=== PATIENT | female | born 1960 ===

== ENCOUNTER → 2018-07-23 | Outpatient (CLI) | payer OTHER ==
[~2018-07-23] MED LIST: ALBIPROI; HYDACE5 PO; MULVITMINF; NAPR500 PO
== END | disposition home or self-care (01) ==
LOC: LAB SHORT 16:15 → LAB 16:15
DX: J06.9 Acute upper respiratory infection, unspecified (principal)
CPT/HCPCS: 87070; 87205

== ENCOUNTER → 2021-02-11 | Outpatient (CLI) | payer OTHER ==
[2021-02-11 20:34] LABS: Protein, Urine Quantitative 10.1 mg/dL (0.0-11.9)
== END | disposition home or self-care (01) ==
LOC: LAB SHORT 16:22 → LAB 16:22
PROVIDERS: Family Medicine
DX: E11.649 Type 2 diabetes mellitus with hypoglycemia without coma (principal)
CPT/HCPCS: 84156

== ENCOUNTER → 2021-06-29 | Outpatient (CLI) | payer OTHER ==
[2021-06-30 09:10] LABS: Stool Occult Bld Immuno 1 Negative (NEGATIVE)
== END | disposition home or self-care (01) ==
LOC: LAB SHORT 15:20
PROVIDERS: Family Medicine
DX: Z12.11 Encounter for screening for malignant neoplasm of colon (principal)
CPT/HCPCS: G0328

== ENCOUNTER 2024-05-01 00:16 | Inpatient (IN) | payer MEDICARE, OTHER ==
[~2024-05-01] VITALS: Ht 167.6 cm; Wt 150.1 kg
[2024-05-01 01:02] LABS: BASOPHILS ABSOLUTE AUTO 0.03 K/mm3 (0.00-0.23); BASOPHILS PERCENT AUTO 0 % (0-2); EOSINOPHILS ABSOLUTE AUTO 0.03 K/mm3 (0.00-0.68); EOSINOPHILS PERCENT AUTO 0 % (0-6); Hematocrit 42.6 % (33.0-51.0); Hemoglobin 14.5 g/dL (11.5-16.0); IMMATURE GRAN ABSOLUTE AUTO 0.04 K/mm3 (0.00-0.10); IMMATURE GRAN PERCENT AUTO 0 % (0-1); LYMPHOCYTES ABSOLUTE AUTO 1.96 K/mm3 (0.84-5.20); LYMPHOCYTES PERCENT AUTO 21 % (21-46); MONOCYTES ABSOLUTE AUTO 1.22 K/mm3 (0.16-1.47); MONOCYTES PERCENT AUTO 13 % (4-13); Mean Corpuscular Volume 82 fL (80-100); Mean Platelet Volume 11.2 fL (9.1-12.4); NEUTROPHILS PERCENT AUTO 65 % (41-73); Platelet Count 246 K/mm3 (150-400); RDW Coefficient Variation 15.3 % (11.7-14.2); RDW Standard Deviation 45.8 fL (35.1-46.3); Red Blood Cell Count 5.18 M/mm3 (3.80-5.20); White Blood Cell Count 9.28 K/mm3 (4.00-11.30)
[2024-05-01 01:16] LABS: Base Excess Venous -1.2 mmol/L; Bicarbonate Venous 22.4 mmol/L (24.0-30.0); PCO2 Venous 47.5 mmHg (38-42); pH Blood Venous 7.33 (7.34-7.37)
[2024-05-01 01:33] LABS: Magnesium, Blood 2.1 mg/dL (1.6-2.4)
[2024-05-01 01:33] LABS: International Normalized Ratio 0.96; Prothrombin Time Results 10.3 Sec (9.7-11.5)
[2024-05-01 01:41] LABS: Albumin, Blood 3.1 g/dL (3.4-5.0); Albumin/Globulin Ratio 0.7 (0.8-1.8); Bilirubin, Total 0.7 mg/dL (0.1-1.0); Bun/Creatinine Ratio 23.6 (12.0-20.0); Calcium, Blood 9.7 mg/dL (8.5-10.1); Creatinine, Blood 1.27 mg/dL (0.40-1.00); Globulin, Blood 4.2 g/dL (2.2-4.0); Phosphorus, Blood 3.1 mg/dL (2.5-4.9); Potassium, Blood 3.5 mmol/L (3.5-5.5); Total Protein, Blood 7.3 g/dL (6.4-8.2)
[2024-05-01 02:22] LABS: CORONAVIRUS COVID-19 AG Negative (NEGATIVE); INFLUENZA A AG Negative (NEGATIVE); INFLUENZA B AG Negative (NEGATIVE)
[2024-05-01] MEDS ORDERED: Acetaminophen 325 MG TABLET PO PRN (02:35)
[2024-05-01] MEDS ORDERED: Ipratropium/Albuterol SulF 2.5-0.5MG/3 ML Amp INH SCH (02:35)
[2024-05-01] MEDS ORDERED: FLU VACC TS2024-25(6MOS UP)/PF 45 MCG/0.5 ML SYRINGE IM ONE (02:35)
[2024-05-01] MEDS ORDERED: Lactated Ringer's 1,000 ML IV SCH ×2 (03:00→06:40)
[2024-05-01] MEDS ORDERED: Insulin Glargine-Yfgn 100 Unit/mL 3 ML SYR SC SCH ×2 (03:00→21:00)
[2024-05-01] MEDS ORDERED: Azithromycin 500 MG in NS 250 ML IV SCH (03:05)
[2024-05-01] MEDS ORDERED: LevoFLOXacin 750 MG/D5W 150ML 150 ML IV ONE (03:40)
[2024-05-01] MEDS ORDERED: TRAM50 PO (03:48)
[2024-05-01 04:26] VITALS: BP 105/62
[2024-05-01 05:22] LABS: Base Excess Venous -3.7 mmol/L; Bicarbonate Venous 20.8 mmol/L (24.0-30.0); PCO2 Venous 44.9 mmHg (38-42); pH Blood Venous 7.31 (7.34-7.37)
[2024-05-01 05:24] LABS: BASOPHILS ABSOLUTE AUTO 0.04 K/mm3 (0.00-0.23); BASOPHILS PERCENT AUTO 1 % (0-2); EOSINOPHILS ABSOLUTE AUTO 0.01 K/mm3 (0.00-0.68); EOSINOPHILS PERCENT AUTO 0 % (0-6); Hematocrit 48.5 % (33.0-51.0); Hemoglobin 16.1 g/dL (11.5-16.0); IMMATURE GRAN ABSOLUTE AUTO 0.03 K/mm3 (0.00-0.10); IMMATURE GRAN PERCENT AUTO 0 % (0-1); LYMPHOCYTES ABSOLUTE AUTO 1.54 K/mm3 (0.84-5.20); LYMPHOCYTES PERCENT AUTO 19 % (21-46); MONOCYTES ABSOLUTE AUTO 0.88 K/mm3 (0.16-1.47); MONOCYTES PERCENT AUTO 11 % (4-13); Mean Corpuscular HGB 27.6 pg (26.0-34.0); Mean Corpuscular HGB Conc 33.2 g/dL (31.5-36.5); Mean Corpuscular Volume 83 fL (80-100); Mean Platelet Volume 11.1 fL (9.1-12.4); NEUTROPHILS ABSOLUTE AUTO 5.68 K/mm3 (1.96-9.15); NEUTROPHILS PERCENT AUTO 69 % (41-73); Platelet Count 229 K/mm3 (150-400); RDW Coefficient Variation 15.2 % (11.7-14.2); RDW Standard Deviation 45.7 fL (35.1-46.3); Red Blood Cell Count 5.83 M/mm3 (3.80-5.20); White Blood Cell Count 8.18 K/mm3 (4.00-11.30)
--- NOTE | 2024-05-01 05:31 | NUR ---
SHIFT SUMMARY PT ADMITTED FROM THE ED AT 0405. PT STATES SOME NAUSEA, BUT SHE FEELS HUNGRY. DENIES CURRENT SOB OR RESPIRATORY DISTRESS- ON 3L NC. PT HAS NOT VOIDED, URINE FOR LAB IS PENDING. CONTINUOUS IVF INFUSING WELL ORDERED ANTIBIOTICS. PT LAYING IN BED WITH CALL LIGHT IN REACH. BED IN LOWEST POSITION, SIDERAILS U X2.
[2024-05-01 05:56] LABS: Albumin, Blood 3.8 g/dL (3.4-5.0); Albumin/Globulin Ratio 0.8 (0.8-1.8); Bilirubin, Total 0.7 mg/dL (0.1-1.0); Bun/Creatinine Ratio 24.4 (12.0-20.0); Calcium, Blood 10.7 mg/dL (8.5-10.1); Creatinine, Blood 1.31 mg/dL (0.40-1.00); Globulin, Blood 4.9 g/dL (2.2-4.0); Potassium, Blood 3.4 mmol/L (3.5-5.5); Total Protein, Blood 8.7 g/dL (6.4-8.2)
[2024-05-01] MEDS ORDERED: NS 1,000 ML IV SCH (07:00)
[2024-05-01] MEDS ORDERED: Insulin Human Lispro 100 Units/ML 3ML Syringe SC SCH ×3 (07:30→21:00)
[2024-05-01] MEDS ORDERED: Potassium Chloride 20 MEQ TabCR PO ONE (08:00)
[2024-05-01 08:20] VITALS: BP 115/61
[2024-05-01] MEDS ORDERED: Lactobacil 2-S.Thermo-Bifido 1 1 Cap PO SCH (09:00)
[2024-05-01] MEDS ORDERED: GuaiFENesin 600 MG TabCR PO SCH (09:00)
[2024-05-01] MEDS ORDERED: PredniSONE 20 MG Tab PO SCH (09:00)
[2024-05-01] MEDS ORDERED: Enoxaparin 40 MG/0.4 ML SYR SC SCH (09:00)
[2024-05-01] MEDS ORDERED: LevoFLOXacin 750 MG Tab PO SCH (10:00)
[2024-05-01 10:04] LABS: Source, Urine Clean Catch
[2024-05-01 10:12] LABS: Appearance, Urine Hazy (Clear); Bilirubin, Urine Neg (Neg); Blood, Urine 1+ (Neg); Color, Urine Yellow (P-Yellow); Glucose Qualitative, Urine Neg (Neg); Ketones, Urine Neg (Neg); Leukocyte Esterase, Urine 3+ (Neg); Nitrite, Urine Neg (Neg); Protein, Urine 2+ (Neg); Specific Gravity, Urine 1.025 (1.003-1.022); Urobilinogen, Urine NORM (Normal)
[2024-05-01 10:18] LABS: Amorphous Light (0-Heavy); Squamous Epithelial Cells Many /hpf (Few)
[2024-05-01 10:19] LABS: Bacteria Many /hpf
[2024-05-01 11:25] LABS: Albumin, Blood 3.1 g/dL (3.4-5.0); Albumin/Globulin Ratio 0.7 (0.8-1.8); Bilirubin, Total 0.6 mg/dL (0.1-1.0); Bun/Creatinine Ratio 29.6 (12.0-20.0); Calcium, Blood 9.8 mg/dL (8.5-10.1); Creatinine, Blood 1.15 mg/dL (0.40-1.00); Globulin, Blood 4.3 g/dL (2.2-4.0); Potassium, Blood 3.5 mmol/L (3.5-5.5); Total Protein, Blood 7.4 g/dL (6.4-8.2)
--- NOTE | 2024-05-01 12:13 | NUR ---
MD CALL DR HELTON NOTIFIED OF BLOOD GLUCOSE OF 352. PT HAS EATEN SOME FOOD BROUGHT IN BY FAMILY. TELEPHONE ORDER TO GIVE 7 UNITS INSULIN INSTEAD OF THE 5 UNITS ON THE SLIDING SCALE NOW. READ BACK DONE.
[2024-05-01] MEDS ORDERED: BASAGLAR K100 UNIT/1 SC (14:39)
[2024-05-01] MEDS ORDERED: PRAV20 PO (14:40)
[2024-05-01] MEDS ORDERED: SYMBICORT 160-4.6 GM INH (14:41)
[2024-05-01] MEDS ORDERED: LOSA50 PO (14:42)
[2024-05-01] MEDS ORDERED: CYCL10 PO (14:42)
[2024-05-01] MEDS ORDERED: GABA600 PO (14:43)
[2024-05-01] MEDS ORDERED: METF500C PO (14:43)
[2024-05-01] MEDS ORDERED: ASCO500 PO (14:44)
[2024-05-01] MEDS ORDERED: ALBU90OI INH (14:45)
[2024-05-01] MEDS ORDERED: Adipex-P37.5 M1 PO (15:07)
--- NOTE | 2024-05-01 15:11 | NUR ---
SHIFT SUMMARY MS FUCHS IS OX4. DENIES HAVING PAIN. TALKING IN FULL SENTENCES WITHOUT SOB ON 3L OXYGEN NASAL CANULA. UP TO CHAIR WITH 1 PERSON ASSISTANCE, STEADY TRANSFER. BLOOD GLUCOSE ELEVATED. [facility] CALLED AND MEDICATION LIST VERIFIED INCLUDING 150UNITS GLARGINE SC DAILY. BACK IN BED THIS AFTERNOON SLEEPING. BED LOW, CALL LIGHT IN REACH.
[2024-05-01 15:26] VITALS: BP 143/63
--- NOTE | 2024-05-01 17:06 | NUR ---
NOTIFY BLOOD GLUCOSE 445. DR HELTON NOTIFIED. AWAITING ORDERS.
[2024-05-01] MEDS ORDERED: TraMADol HCl 50 MG Tab PO PRN (17:10)
[2024-05-01] MEDS ORDERED: Cyclobenzaprine HCl 10 MG Tab PO PRN (17:15)
[2024-05-01] MEDS ORDERED: Mometasone/Formoterol MDI 200/5 mcg 13 GM INH SCH (17:30)
[2024-05-01] MEDS ORDERED: Albuterol HFA200 ACT/6.7 GM INH INH PRN (17:30)
[2024-05-01 19:23] VITALS: BP 142/62
[2024-05-01] MEDS ORDERED: Gabapentin 300 MG Cap PO SCH (21:00)
[2024-05-01] MEDS ORDERED: Pravastatin Sodium 20 MG Tab PO SCH (21:00)
[2024-05-02 04:41] VITALS: BP 140/92
--- NOTE | 2024-05-02 06:33 | NUR ---
SHIFT SUMMARY PT STATES SHE FELT BETTER LAST EVENING, STRONGER AND STEADIER ON HER FEET. PT AMBULATING TO THE BATHROOM WITH WALKER AND SBA. PT STATES SHE FEELS MORE CONGESTED THIS AM. NEBULIZER TREATMENT DUE SOON. O2- 3L NC IN PLACE THROUGH THE NIGHT. PT SLEPT INTERMITTENTLY DURING THE NIGHT. CALL LIGHT WITHIN REACH, SIDERAILS UP X2.
[2024-05-02 07:23] VITALS: BP 143/57
[2024-05-02] MEDS ORDERED: Ascorbic Acid 500 MG Tab PO SCH (09:00)
[2024-05-02] MEDS ORDERED: PHENTERMINE 37.5 MG PO SCH (09:00)
[2024-05-02] MEDS ORDERED: LevoFLOXacin 750 MG Tab PO SCH (09:00)
[2024-05-02] MEDS ORDERED: Losartan Potassium 50 MG Tab PO SCH (09:00)
[2024-05-02] MEDS ORDERED: Insulin Glargine-Yfgn 100 Unit/mL 3 ML SYR SC SCH (10:00)
[2024-05-02 10:52] LABS: Hematocrit 39.1 % (33.0-51.0); Mean Corpuscular HGB 27.9 pg (26.0-34.0); Mean Corpuscular HGB Conc 33.2 g/dL (31.5-36.5); Mean Corpuscular Volume 84 fL (80-100); Mean Platelet Volume 11.4 fL (9.1-12.4); Platelet Count 225 K/mm3 (150-400); RDW Coefficient Variation 15.2 % (11.7-14.2); RDW Standard Deviation 46.5 fL (35.1-46.3); Red Blood Cell Count 4.66 M/mm3 (3.80-5.20); White Blood Cell Count 6.92 K/mm3 (4.00-11.30)
[2024-05-02 11:25] LABS: Albumin, Blood 3.1 g/dL (3.4-5.0); Anion Gap 11 mmol/L (3-11); Blood Urea Nitrogen 26 mg/dL (8-24); Bun/Creatinine Ratio 45.3 (12.0-20.0); CO2, Blood 26 mmol/L (21-32); Chloride, Blood 105 mmol/L (98-108); Creatinine, Blood 0.57 mg/dL (0.40-1.00); Glomerular Filtration Rate 100 (60-); Glucose, Blood 272 mg/dL (70-99); Phosphorus, Blood 2.1 mg/dL (2.5-4.9); Potassium, Blood 3.6 mmol/L (3.5-5.5); Sodium, Blood 138 mmol/L (136-145)
[2024-05-02 15:29] VITALS: BP 119/58
[2024-05-02] MEDS ORDERED: Potassium Phosphate Dibasic 30 MM in Dextrose 5% 500 ML IV STA (17:33)
[2024-05-02] MEDS ORDERED: NS 1,000 ML IV SCH (17:35)
--- NOTE | 2024-05-02 18:07 | NUR ---
NO ACUTE CHANGES, LONG ACTING INSULIN INCREASED, PATIENT SHOWERED TODAY, LS CONGESTED, ONE BAG IVF INFUSING, TO GET POTASSIUM IV, NEW IV TO RIGHT FOREARM, CALL LIGHT WITH IN REACH, WILL RELAY TO PM RN
[2024-05-02 19:47] VITALS: BP 141/59
--- NOTE | 2024-05-02 21:29 | NUR ---
Pt alert/ oriented. pt coughing and taking deep breathes, on nasal cannula. SBA to restroom and back to bed. Vital signs completed
--- NOTE | 2024-05-02 21:36 | NUR ---
CBG 395 AND GAVE NIGHT SLIDING SCALE HUMALOG 6 UNITS AND SCHEDULE GLARGINE [address] VALENCIA NOTIFED AND REPORTED TO CHECK NEXT SET OF LABS. ALERT ORIENTED WATCHING TV. WCTM.
[2024-05-03 03:20] VITALS: BP 149/64
--- NOTE | 2024-05-03 04:10 | NUR ---
SHIFT SUMMARY PATIENT CBG 395 AND HOSPITALIST NOTIFIED AFTER GIVING NIGHT SLIDING SCALE HUMALOG AND GLARGINE 30 UNITS. HE REPORTED TO CHECK MORNING LABS. ON 3L O2 NC. DENIES CHEST PAIN, SOB, AND N/V. VSS/AFEBRILE. PIV INTACT. IV K+ INFUSING. RT IN FOR BREATHNG TX. CALL LIGHT IN REACH. BED IN LOWEST POSITION. WILL CONTINUE TO MONITOR UNTIL DAY SHIFT NURSE ASSUMES CARE.
[2024-05-03 06:54] LABS: Anion Gap 11 mmol/L (3-11); Blood Urea Nitrogen 20 mg/dL (8-24); Bun/Creatinine Ratio 38.5 (12.0-20.0); CO2, Blood 28 mmol/L (21-32); Calcium, Blood 10.6 mg/dL (8.5-10.1); Chloride, Blood 105 mmol/L (98-108); Creatinine, Blood 0.52 mg/dL (0.40-1.00); Glomerular Filtration Rate 102 (60-); Glucose, Blood 279 mg/dL (70-99); Sodium, Blood 140 mmol/L (136-145)
[2024-05-03 07:32] VITALS: BP 192/69
[2024-05-03 15:09] VITALS: BP 153/66
--- NOTE | 2024-05-03 18:03 | NUR ---
CLEARLY MAKES NEEDS KNOWN, NO ACUTE CHANGES, DIETARY CONSULT FOR TOMORROW, MEDICATED WITH TYLENOL, ANDREA REFUSED THE NEED FOR TRAMADOL. CALL LIGHT WITH IN REACH WILL RELAY TO PM ALONZO
[2024-05-03 19:17] VITALS: BP 143/76
[2024-05-03 19:18] VITALS: BP 143/76
[2024-05-03] MEDS ORDERED: Insulin Glargine-Yfgn 100 Unit/mL 3 ML SYR SC SCH (21:00)
[2024-05-04 02:49] VITALS: BP 146/56
--- NOTE | 2024-05-04 04:45 | NUR ---
SHIFT SUMMARY PT ALERT ORIENTED X 4 ABLE TO VERBALIZE NEEDS REQUIRES 1 PERSON SBA WITH WALKER FOR TRANSFERS. NO C/O PAIN THIS SHIFT. REMAINS ON O2 AT 3L VIA NC. NO C/O SOB THIS SHIFT. VSS ON 3L SATTING AT 95%. REMAINS ON LEVAQUIN QDAY. FS DONE AC AND HS WAS 325. SHES RESTING IN BED AT THIS TIME WITH CALL LIGHT IN REACH
[2024-05-04 07:26] VITALS: BP 164/72
[2024-05-04 15:05] VITALS: BP 155/63
--- NOTE | 2024-05-04 18:41 | NUR ---
NO ACUTE CHANGES, CLEARLY MAKES NEEDS KNOWN, GRADES 1 6 TUTOR TO ROUND TOMORROW, PATIENT NEEDS DIABETIC FOOD EDUCATION, FRIENDS VISITING NOW, SHOWERED TODAY, ENCOURAGED FLUIDS, USES CALL LIGHT APPROPRIATELY, INDEPEDANT IN ROOM WITH O2 TUBING, WILL RELAY TO PM RN
[2024-05-04 19:32] VITALS: BP 142/61
[2024-05-05 04:10] VITALS: BP 112/52
--- NOTE | 2024-05-05 04:29 | NUR ---
SHIFT SUMMARY PT ALERT ORIENTED X 4 ABLE TO VERBALIZE NEEDS CALLS APPROPRIATELY AMBULATES AD VICTOR MANUEL IN HER ROOM WITH WALKER. REMAINS ON O2 AT 3L VIA NC NO C/O SOB THIS SHIFT REMAINS ON LEVAQUIN ORDERED NO C/O PAIN VSS ON 3 L SATTING AT 93%. FS DONE AC AND HS WAS 371. SHE RECEIVED HER HUMALOG AND GLARGINE COVERAGE. RESTING IN BED AT THIS TIME WITH CALL LIGHT IN REACH
[2024-05-05 05:51] LABS: Hematocrit 38.3 % (33.0-51.0); Hemoglobin 12.4 g/dL (11.5-16.0); Mean Corpuscular HGB 27.7 pg (26.0-34.0); Mean Corpuscular HGB Conc 32.4 g/dL (31.5-36.5); Mean Corpuscular Volume 86 fL (80-100); Mean Platelet Volume 11.5 fL (9.1-12.4); Platelet Count 212 K/mm3 (150-400); RDW Standard Deviation 46.4 fL (35.1-46.3); Red Blood Cell Count 4.48 M/mm3 (3.80-5.20); White Blood Cell Count 9.26 K/mm3 (4.00-11.30)
[2024-05-05 06:21] LABS: Bun/Creatinine Ratio 35.2 (12.0-20.0); Calcium, Blood 10.4 mg/dL (8.5-10.1); Creatinine, Blood 0.45 mg/dL (0.40-1.00); Potassium, Blood 3.8 mmol/L (3.5-5.5)
[2024-05-05 07:28] VITALS: BP 188/85
[2024-05-05] MEDS ORDERED: Fluconazole 100 MG Tab PO ONE (14:10)
[2024-05-05 15:11] VITALS: BP 179/83
--- NOTE | 2024-05-05 18:52 | NUR ---
PATIENT A/OX4, UP INDEPENDENTLY WITH FWW IN ROOM. VSS, ON 2LO2 VIA NC. ACHS BLOOD SUGARS, COVERAGE PER SS. TYLENOL GIVEN X1 FOR HEADACHE WITH STATED RELIEF. PATIENT REPORTS BURNING WITH URINATION, DR HELTON NOTIFIED AND AYO ORDERED TO TREAT. PATIENT PLEASANT AND COOPERATIVE, ABLE TO MAKE NEEDS KNOWN.
[2024-05-05 19:30] VITALS: BP 168/69
[2024-05-06 03:22] VITALS: BP 125/62
--- NOTE | 2024-05-06 05:44 | NUR ---
SHIFT SUMMARY 64 YR F ADMITTED ON 05/02/24. FULL CODE. NO ACUTE CHANGES THIS SHIFT. PT HAS SLEPT FOR MOST OF THIS SHIFT. SHE HAS HAD NO C/O PAIN OR DISCOMFORT. A&O X 4, PLEASANT, AND COOPERATIVE WITH CARE. BS WAS 312 @ 2100 AND INSULIN GIVEN PER EMAR. PT STATED THE HER BS ARE HIGH DUE TO RECEIVING STEROIDS, AND THAT SHE IS TIRED OF PEOPLE GIVING HER SH*T ABOUT IT. NO NEW CHANGES TO REPORT. WILL CONTINUE TO MONITOR. BED IN LOW PSOITION AND CALL LIGHT IN REACH.
[2024-05-06 07:09] VITALS: BP 166/82
[2024-05-06] MEDS ORDERED: GUAI600T33 PO (13:41)
[2024-05-06] MEDS ORDERED: LEVO750 PO (13:43)
[2024-05-06] MEDS ORDERED: IPRAT-ALBUT 0.5-3 ML INH (13:43)
[2024-05-06] MEDS ORDERED: VISBIOME 112.51 EACH PO (13:45)
--- NOTE | 2024-05-06 15:02 | NUR ---
PATIENT DC'D TO HOME WITH SON. DC INSTRUCTIONS AND EDUCATION DISCUSSED WITH PATIENT AND COPY PROVIDED. PATIENT DENIES ANY FURTHER QUESTIONS OR CONCERNS. RX MEDICATIONS FAXED TO [facility].
== END 2024-05-06 15:00 | disposition home or self-care (01) | DRG 871 ==
LOC: ER 00:16 → MEDS 00:17
PROVIDERS: Emergency Medicine; Internal Medicine; ADMIT Student in an Organized Health Care Education/Training Program
DX: A41.9 Sepsis, unspecified organism (principal); J18.9 Pneumonia, unspecified organism; J96.01 Acute respiratory failure with hypoxia; J96.02 Acute respiratory failure with hypercapnia; J44.0 Chronic obstructive pulmonary disease with (acute) lower respiratory infection; Z68.43 Body mass index [BMI] 50.0-59.9, adult; J44.1 Chronic obstructive pulmonary disease with (acute) exacerbation; E87.20 Acidosis, unspecified; N17.9 Acute kidney failure, unspecified; M62.82 Rhabdomyolysis; E87.1 Hypo-osmolality and hyponatremia; R65.20 Severe sepsis without septic shock; E66.9 Obesity, unspecified; E87.6 Hypokalemia; E83.52 Hypercalcemia; E11.40 Type 2 diabetes mellitus with diabetic neuropathy, unspecified; E11.42 Type 2 diabetes mellitus with diabetic polyneuropathy; E11.65 Type 2 diabetes mellitus with hyperglycemia; Z88.8 Allergy status to other drugs, medicaments and biological substances; Z79.891 Long term (current) use of opiate analgesic; Z79.899 Other long term (current) drug therapy; Z79.51 Long term (current) use of inhaled steroids; Z79.1 Long term (current) use of non-steroidal anti-inflammatories (NSAID); Z91.040 Latex allergy status; Z88.5 Allergy status to narcotic agent; Z79.84 Long term (current) use of oral hypoglycemic drugs; Z28.21 Immunization not carried out because of patient refusal
CPT/HCPCS: 36415; 71046; 80048; 80053; 80069; 81001; 82550; 82803; 82947; 83036; 83605; 83735; 83880; 84100; 84145; 84484; 85025; 85027; 85610; 85730; 87040; 87086; 87428-QW; 93005; 93010; 94640; 94664; 94760; 94761; 96365; 96372; 96375; 97161; 99285-25; A9270; G0378; J0456; J1650; J1815; J1956; J7030; J7050; J7060; J7120; J7512

== ENCOUNTER → 2024-12-29 | Outpatient (CLI) | payer MEDICARE, OTHER ==
[~2024-12-29] MED LIST changes: +ALBU90OI INH; +ASCO500 PO; +Adipex-P37.5 M1 PO; +BASAGLAR K100 UNIT/1 SC; +CYCL10 PO; +GABA600 PO; +GUAI600T33 PO; +IPRAT-ALBUT 0.5-3 ML INH; +LEVO750 PO; +LOSA50 PO; +METF500C PO; +PRAV20 PO; +SYMBICORT 160-4.6 GM INH; +TRAM50 PO; +VISBIOME 112.51 EACH PO
== END | disposition home or self-care (01) ==
LOC: LAB 07:43 → LAB SHORT 07:43
DX: L82.1 Other seborrheic keratosis (principal)
CPT/HCPCS: 88305